=== PATIENT | female | born 1940 | race Caucasian/White ===

== ENCOUNTER 2018-01-23 09:20 | Emergency (ER) | payer OTHER ==
[~2018-01-23] VITALS: Ht 162.6 cm; Wt 59.0 kg
[~2018-01-23 09:20] MED LIST: ABAT250V; ADAL40PEN INJ; ALBU90OI61 INH; AMIT10 PO; HYDSUL200 PO; PRED1 PO; Protonix40 MG PO; TEMA15 PO
[2018-01-23] MEDS ORDERED: GABA100 (10:18)
[2018-01-23] MEDS ORDERED: VALACYCLOVIR1000 MG (10:18)
[2018-01-23] MEDS ORDERED: Mupirocin22 GM TOP (11:51)
== END 2018-01-23 12:11 | disposition home or self-care (01) ==
LOC: ER 09:20
DX: B02.9 Zoster without complications (principal); Z88.8 Allergy status to other drugs, medicaments and biological substances; Z88.2 Allergy status to sulfonamides; Z79.899 Other long term (current) drug therapy; Z79.52 Long term (current) use of systemic steroids
CPT/HCPCS: 99282

== ENCOUNTER 2018-09-25 09:49 | Emergency (ER) | payer OTHER ==
[~2018-09-25] VITALS: Ht 160 cm; Wt 59.0 kg
[~2018-09-25 09:49] MED LIST changes: +GABA100; +Mupirocin22 GM TOP; +VALACYCLOVIR1000 MG
[2018-09-25 10:45] LABS: BASOPHILS ABSOLUTE AUTO 0.06 K/mm3 (0.00-0.23); BASOPHILS PERCENT AUTO 1 % (0-2); EOSINOPHILS PERCENT AUTO 1 % (0-6); Hematocrit 40.3 % (33.0-51.0); Hemoglobin 13.4 g/dL (11.5-16.0); IMMATURE GRAN ABSOLUTE AUTO 0.03 K/mm3 (0.00-0.10); IMMATURE GRAN PERCENT AUTO 0 % (0-1); LYMPHOCYTES PERCENT AUTO 14 % (21-46); MONOCYTES ABSOLUTE AUTO 0.85 K/mm3 (0.16-1.47); MONOCYTES PERCENT AUTO 11 % (4-13); Mean Corpuscular HGB 31.2 pg (26.0-34.0); Mean Corpuscular HGB Conc 33.3 g/dL (31.5-36.5); Mean Corpuscular Volume 94 fL (80-100); Mean Platelet Volume 8.4 fL (9.1-12.4); NEUTROPHILS ABSOLUTE AUTO 5.62 K/mm3 (1.96-9.15); NEUTROPHILS PERCENT AUTO 72 % (41-73); Platelet Count 367 K/mm3 (150-400); RDW Coefficient Variation 13.5 % (11.7-14.2); White Blood Cell Count 7.76 K/mm3 (4.00-11.30)
[2018-09-25 11:14] LABS: Alanine Aminotransfer (ALT/SGP 17 U/L (12-78); Albumin, Blood 3.8 g/dL (3.4-5.0); Albumin/Globulin Ratio 0.9 (0.8-1.8); Alk Phos 119 U/L (50-136); Anion Gap 9 mmol/L (6-16); Aspartate Aminotrans (AST/SGOT 27 U/L (12-37); Bilirubin, Total 0.6 mg/dL (0.1-1.0); Blood Urea Nitrogen 17 mg/dL (8-24); CO2, Blood 26 mmol/L (21-32); Calcium, Blood 9.2 mg/dL (8.5-10.1); Chloride, Blood 98 mmol/L (98-108); Creatinine, Blood 0.95 mg/dL (0.40-1.00); Globulin, Blood 4.4 g/dL (2.2-4.0); Glomerular Filtration Rate >60 (60-); Glucose, Blood 89 mg/dL (70-99); Potassium, Blood 3.7 mmol/L (3.5-5.5); Sodium, Blood 133 mmol/L (136-145); Total Protein, Blood 8.2 g/dL (6.4-8.2); Troponin I <0.015 ng/mL (0.000-0.040)
== END 2018-09-25 14:28 | disposition left against medical advice (07) ==
LOC: ER 09:49
PROVIDERS: Emergency Medicine
DX: Z53.21 Procedure and treatment not carried out due to patient leaving prior to being seen by health care provider (principal)
CPT/HCPCS: 36415; 71046; 80053; 84484; 85025; 93005; 93010

== ENCOUNTER 2019-10-30 09:09 | Observation (INO) | payer OTHER ==
[~2019-10-30] VITALS: Ht 160 cm; Wt 40.8 kg
[2019-10-30 09:40] LABS: BASOPHILS ABSOLUTE AUTO 0.06 K/mm3 (0.00-0.23); BASOPHILS PERCENT AUTO 1 % (0-2); EOSINOPHILS ABSOLUTE AUTO 0.39 K/mm3 (0.00-0.68); EOSINOPHILS PERCENT AUTO 3 % (0-6); Hematocrit 38.9 % (33.0-51.0); Hemoglobin 12.3 g/dL (11.5-16.0); IMMATURE GRAN ABSOLUTE AUTO 0.06 K/mm3 (0.00-0.10); IMMATURE GRAN PERCENT AUTO 1 % (0-1); LYMPHOCYTES PERCENT AUTO 11 % (21-46); MONOCYTES ABSOLUTE AUTO 0.75 K/mm3 (0.16-1.47); MONOCYTES PERCENT AUTO 6 % (4-13); Mean Corpuscular HGB 29.3 pg (26.0-34.0); Mean Corpuscular HGB Conc 31.6 g/dL (31.5-36.5); Mean Corpuscular Volume 93 fL (80-100); Mean Platelet Volume 8.7 fL (9.1-12.4); NEUTROPHILS ABSOLUTE AUTO 9.25 K/mm3 (1.96-9.15); NEUTROPHILS PERCENT AUTO 78 % (41-73); Platelet Count 446 K/mm3 (150-400); RDW Coefficient Variation 14.4 % (11.7-14.2); RDW Standard Deviation 48.8 fL (35.1-46.3); White Blood Cell Count 11.81 K/mm3 (4.00-11.30)
[2019-10-30 10:01] LABS: Alanine Aminotransfer (ALT/SGP 15 U/L (12-78); Albumin, Blood 2.9 g/dL (3.4-5.0); Anion Gap 6 mmol/L (6-16); Aspartate Aminotrans (AST/SGOT 20 U/L (12-37); Blood Urea Nitrogen 12 mg/dL (8-24); Bun/Creatinine Ratio 12.8 (12.0-20.0); CO2, Blood 29 mmol/L (21-32); Chloride, Blood 105 mmol/L (98-108); Creatinine, Blood 0.93 mg/dL (0.40-1.00); Glomerular Filtration Rate >60 (60-); Glucose, Blood 85 mg/dL (70-99); Potassium, Blood 3.9 mmol/L (3.5-5.5); Sodium, Blood 140 mmol/L (136-145)
[2019-10-30 10:02] LABS: Albumin/Globulin Ratio 0.7 (0.8-1.8); Bilirubin, Total 0.3 mg/dL (0.1-1.0); Globulin, Blood 4.2 g/dL (2.2-4.0); Total Protein, Blood 7.1 g/dL (6.4-8.2)
[2019-10-30 10:03] LABS: Alk Phos 80 U/L (50-136)
--- NOTE | 2019-10-30 16:14 | NUR ---
Echocardiogram completed.
--- NOTE | 2019-10-30 18:49 | NUR ---
PT IS AOX2 AND HAS CONFUSION. PT DOES NOT CALL AND IS IMPULSIVE. PT HAS BEEN USING BED DAVIDSON, BUT DOES NOT LIKE IT. PT HAS TOLD SHE WANTS TO LEAVE AND GET AGITATED THE NURSE TRYING TO HELP HER USE BED DAVIDSON. PT HAS TROUBLE UNDERSTANDING WHY SHE NEEDS TO BE IN BED RIGHT NOW. BED ALARM IS IN PLACE AND CALL LIGHT WITHIN REACH. WILL CONTINUE TO MONITOR.
[2019-10-31 05:50] LABS: Hematocrit 33.1 % (33.0-51.0); Hemoglobin 10.4 g/dL (11.5-16.0); Mean Corpuscular HGB 29.2 pg (26.0-34.0); Mean Corpuscular HGB Conc 31.4 g/dL (31.5-36.5); Mean Corpuscular Volume 93 fL (80-100); Mean Platelet Volume 9.1 fL (9.1-12.4); Platelet Count 362 K/mm3 (150-400); RDW Coefficient Variation 14.3 % (11.7-14.2); RDW Standard Deviation 48.5 fL (35.1-46.3); Red Blood Cell Count 3.56 M/mm3 (3.80-5.20); White Blood Cell Count 8.15 K/mm3 (4.00-11.30)
[2019-10-31 06:02] LABS: Anion Gap 4 mmol/L (6-16); Blood Urea Nitrogen 10 mg/dL (8-24); Bun/Creatinine Ratio 11.7 (12.0-20.0); CO2, Blood 26 mmol/L (21-32); Calcium, Blood 8.3 mg/dL (8.5-10.1); Chloride, Blood 108 mmol/L (98-108); Creatinine, Blood 0.85 mg/dL (0.40-1.00); Glomerular Filtration Rate >60 (60-); Glucose, Blood 79 mg/dL (70-99); Potassium, Blood 3.7 mmol/L (3.5-5.5); Sodium, Blood 138 mmol/L (136-145)
--- NOTE | 2019-10-31 06:25 | NUR ---
SHIFT SUMMARY PATIENT PLEASANT AND ABLE TO SLEEP FOR MOST OF THE NIGHT. ABOUT 0600 PATIENT SAT UP IN BED WANTING TO GO HOME AND YELLING THAT SHE WANTED TO TALK WITH HER AND DAUGHTER, KATIE. THIS RN ASSISTED THE PATIENT TO PHONE KATIE AND SHE SETTLED DOWN THE PHONE CALL PROGRESSED. IV PATENT AND FLUSHED. BED IN LOWEST POSITION WITH WHEELS LOCKED AND ALARM ON. CALL LIGHT WITHIN REACH. REPORT GIVEN TO ONCGARRETT RN.
--- NOTE | 2019-10-31 10:09 | NUR ---
D/C FOLLOW UP APPT: PT'S PCP IS OUT OF TOWN IN [place]. FAMILY TO MAKE FOLLOW UP APPT.
--- NOTE | 2019-10-31 11:56 | NUR ---
Patient is sitting up in bed and alert. Patient's spouse, Kb, in bedside. They tell many stories of their life together, their love, the tragedy and triumphs and the beautiful family they have. I listen empathically, conduct a life review and provide a blessing. Patient and Kb respond well and show signs of an elevated mood. I will continue to remain available to patient and family.
--- NOTE | 2019-10-31 12:00 | NUR ---
REVIEW D'C W/PATIENT AND S.O. STS THEY SEE . ADVISED WILL LET DEANGELO ASHRAF KNOW. [facility] TO CALL THEM AND MAKE F/U APPT. AWARE CAN RETURN TO E.R. S.O. FEELS PATIENT IS AT HER BASELINE. V.S. TAKEN AND PATIENT ABLE TO STAND WITH HER SANDALS ON. ANSWER ALL QUESTIONS. OTD W/ESCORT.
--- NOTE | 2019-10-31 12:15 | NUR ---
PER ANDRIY WITH MARY, PATIENT DOES NOT SEE , BUT DR. CAZARES. LEFT MESSAGE WITH [facility] AT [phone] THAT PATIENT WAS D'C AND NEEDS AN APPOINTMENT.
== END 2019-10-31 12:00 | disposition home or self-care (01) ==
LOC: ER 09:09 → MEDS 13:37 → ENPENDDIS 10-31 09:56 → MEDS 10-31 12:00
PROVIDERS: Nurse Practitioner Acute Care; Physician Assistant; ADMIT Family Medicine
DX: I95.1 Orthostatic hypotension (principal); M06.9 Rheumatoid arthritis, unspecified; I65.29 Occlusion and stenosis of unspecified carotid artery; Z88.8 Allergy status to other drugs, medicaments and biological substances; Z88.2 Allergy status to sulfonamides; J84.10 Pulmonary fibrosis, unspecified
CPT/HCPCS: 36415; 71046; 80048; 80053; 83735; 83880; 84484; 85025; 85027; 85379; 93005; 93010; 93306; 93880; 96361; 96374; 99285-25; G0378; J2405; J7030; J7512

== ENCOUNTER 2020-02-09 08:29 | Emergency (ER) | payer OTHER ==
[~2020-02-09] VITALS: Ht 160 cm; Wt 49.9 kg
== END 2020-02-09 10:32 | disposition home or self-care (01) ==
LOC: ER 08:29
DX: R53.1 Weakness (principal); R52 Pain, unspecified; F32.9 Major depressive disorder, single episode, unspecified; F03.90 Unspecified dementia, unspecified severity, without behavioral disturbance, psychotic disturbance, mood disturbance, and anxiety; I95.9 Hypotension, unspecified; Z87.01 Personal history of pneumonia (recurrent); Z88.2 Allergy status to sulfonamides; Z88.8 Allergy status to other drugs, medicaments and biological substances
CPT/HCPCS: 99283